=== PATIENT | male | born 1990 | race Caucasian/White ===

== ENCOUNTER 2022-06-18 10:43 | Emergency (ER) | payer OTHER, SELFPAY ==
[2022-06-18 11:21] VITALS: BP 138/86; PULSE 64; RESP 14; TEMP 36.7; O2SAT 100; BMI 33.3
--- NOTE | 2022-06-18 11:30 | ED_ITS ---
HPI - Wound/Laceration General: Chief Complaint: Wound/Laceration Stated Complaint: Right Hand Injury Time Seen by Provider: 06/18/22 11:29 Source: patient Mode of arrival: ambulatory Limitations: no limitations History of Present Illness: Patient is a nice 32-year-old male presents to ED today for evaluation of a laceration to his right hand that he sustained just prior to arrival after cutting it on a table saw. Last tetanus is unknown. Onset (ago): hour(s) Extremity Location: Right: hand Place: home Patient tetanus UTD: No Context: accidental Associated symptoms: Reports inability to move (cannot extend finger) Review of Systems Musc: Reports: extremity pain (R hand); Denies: extremity swelling Skin/Breast: Reports: other (laceration R hand) Neuro: Denies: numbness in extremities or sensory changes Physical Exam Const: COMMON NORMALS: no acute distress, no limitations, healthy appearing, alert and well nourished Extremity: COMMON NORMALS: capillary refill normal GENERAL: Yes normal exam except as noted RIGHT UPPER EXTREMITY: Yes hand & digits OTHER: small 1.25cm laceration directly overlying volar R 4th MCP joint; finger is resting in slight flexion and there does appear to be a lacerated extensor tendon; no bleeding; sensation normal; normal perfusion distally Neuro: COMMON NORMALS: no sensory deficits noted SENSORIUM/ORIENTATION: Yes alert Procedures Laceration Laceration 1: Site: hand Side (If applicable): right Size (cm): 1.25 Description: linear and clean Depth: involves tendon Local Anesthetic: lidocaine 1% Amount of anesthesia used (mL): 1.0 Pre-repair: wound explored and irrigated extensively Skin layer closed with: nylon Size (cm): 5-0 Number of sutures: 3 Technique: simple, interrupted Course Vital Signs: Vital signs: Vital Signs Temperature 98.1 F 06/18/22 11:21 Pulse Rate 64 06/18/22 11:21 Respiratory Rate 14 06/18/22 11:21 Blood Pressure 138/86 06/18/22 11:21 Pulse Oximetry 100 06/18/22 11:21 Oxygen Delivery Me thod Room Air 06/18/22 11:21 MDM - Wound/Laceration Medical Decision Making Wound was copiously irrigated and repaired as documented. I could not locate both edges of the tendon for a [id number] stitch. Wound was closed and finger will be placed in splint in extension and he will follow-up with orthopedics for tendon repair. He will be placed on oral antibiotics. Tetanus was updated. Management referral placed. Return to ED precautions given. Lab Data Radiology Impressions Hand X-Ray 06/18/22 11:56 IMPRESSION: No acute findings. Discharge Plan Discharge Patient Disposition: Home Clinical Impression: Extensor tendon laceration of finger with open wound Qualifiers: Encounter type: initial encounter Qualified Code(s): S56.429A - Laceration of extensor muscle, fascia and tendon of unspecified finger at forearm level, initial encounter Condition: Stable Prescriptions: New cephalexin 500 mg capsule 500 mg PO Q6H 7 Days Qty: 28 0RF Discharge Orders: Discharge ED (Routine); Ordered 06/18/22 Ordered By: Chasity Shea Patient Instructions: Finger Laceration (ED), Tendon Laceration (ED) Activity Restrictions/Additional Instructions: As we discussed you need to wear your splint at all times. Case management should contact you shortly to set you up with your follow-up orthopedic appointment. Monitor wound for signs of infection such as redness, swelling, streaking up your arm, purulent drainage. Please seek medical reevaluation if these occur. 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
--- NOTE | 2022-06-18 11:56 | XRR_ITS ---
PROCEDURE INFORMATION: Exam: XR Right Hand Exam date and time: 06/18/2022 12:18 PM Age: 32 years old Clinical indication: Injury or trauma; Other: Laceration; Hand; Right; Additional info: 4th mcp laceration/trauma; Tendon injury TECHNIQUE: Imaging protocol: Radiologic exam of the right hand. Views: 3 or more views. COMPARISON: No relevant prior studies available. FINDINGS: Bones/joints: Negative for acute bony abnormality. Soft tissues: Unremarkable XR/XR hand RT min 3V* [id number] IMPRESSION: No acute findings.
[2022-06-18] MEDS: tetanus-dipt-pertussis 0.5 mL SDV IM (12:03)
--- NOTE | 2022-06-18 15:46 | DCPLANNER ---
Addendum entered by Anne Regan 06/26/22 15:14: Patient had a follow up appointment scheduled with ortho - patient did attend appointment. Addendum entered by Anne Regan 06/19/22 10:53: Patient has a follow up appointment scheduled for Monday, June 20, 2022 at 11:[address] Salinas at ortho. Original Note: manager in training had message to schedule a follow up appointment for patient with ortho. manager in training sent patients information to the front office staff at ortho. Patients information will be printed and reviewed. Clinic will call patient with appointment information.
--- NOTE | 2022-06-20 14:57 | DCPLANNER ---
claim manager called patient due to no primary care physician - patient declines at this time.
== END 2022-06-18 13:25 | disposition home or self-care (01) ==
PROVIDERS: Emergency Provider Physician Assistant
DX: S66.324A Laceration of extensor muscle, fascia and tendon of right ring finger at wrist and hand level, initial encounter (principal); W27.0XXA Contact with workbench tool, initial encounter; Z23 Encounter for immunization
CPT/HCPCS: 12001; 73130; 90471; 90715; 99283

== ENCOUNTER 2022-06-20 15:32 | Outpatient (CLI) | payer OTHER, SELFPAY | END 2022-06-20 15:33 | disposition home or self-care (01) | LOC: SPT 15:33 | PROVIDERS: Visit Provider Orthopaedic Surgery | DX: Z46.89 Encounter for fitting and adjustment of other specified devices (principal); S56.429D Laceration of extensor muscle, fascia and tendon of unspecified finger at forearm level, subsequent encounter; S61.209D Unspecified open wound of unspecified finger without damage to nail, subsequent encounter; X58.XXXD Exposure to other specified factors, subsequent encounter | CPT/HCPCS: 97760; L3807 ==

== ENCOUNTER 2022-06-28 05:53 | Day surgery (SDC) | payer OTHER, SELFPAY ==
[2022-06-27 09:42] VITALS: BMI 33.3
[2022-06-28] VITALS (10 sets, daily range): BP systolic 114–154; BP diastolic 73–93; PULSE 71–82; RESP 15–18; TEMP 36.8–37.2; O2SAT 96–100
--- NOTE | 2022-06-28 06:41 | P.ANESASSM_ITS ---
Pre-Anesthetic Assessment Height/Weight: Height 1.88 m Weight 117.934 kg Temp Pulse Resp BP Pulse Ox O2 Del Method 98.4 F 77 18 140/85 100 Room Air 06/28/22 06:15 06/28/22 06:15 06/28/22 06:15 06/28/22 06:15 06/28/22 06:15 06/28/22 06:15 Preop Diagnosis: Repair right ring finger extensor tendon Operation Date: 06/28/22 07:00 Proposed Procedures p wound exploration and extensor tendon repair right ring finger/ [id number],S56.429A; S61.209A(Right) - Ori Salinas MD s Tendon Repair Finger Extensor Tendon Repair Finger(Right) - Ori Salinas MD Familial anesthetic complications: None Was Beta Enoc taken within 24 hours: N/A Was Clonidine taken within 24 hours: N/A Last intake: Intake Last Liquid Date 06/27/22 Last Liquid Time 19:00 Last Solid Date 06/27/22 Last Solid Time 19:00 Social No alcohol and No tobacco Exam alert, oriented x 3, clear to auscultation bilaterally and regular rate & rhythm Airway Mallampati: Class III Dentition: chipped (front) History/ROS No significant complaints Anesthetic Plan ASA status: 1 Anesthesia: Choice Risk of > 500 ml blood loss (7ml/kg in children): No Medications/Allergies Home Medications Medication Instructions Recorded Confirmed Last Taken Type fast form ulnar gutter splint #1 ea 06/20/22 06/20/22 Unknown Rx Allergies Allergy/AdvReac Type Severity Reaction Status Date / Time No Known Allergies Allergy Verified 06/20/22 11:22 [facility] Anesthesia Social History (Updated 06/20/22 @ 11:26 by Anibal Irene LPN) Smoking and tobacco status: never smoked Alcohol intake: never Substance/Drug Use: never Data Anesthesia Cardiac Studies: No Data to Display
[2022-06-28] MEDS: sodium chloride 0.9% 1,000 ML 30 ML IV (06:44)
--- NOTE | 2022-06-28 07:06 | W.PM.OPSUD ---
Surgery/Procedure H&P Update DATE OF PROCEDURE: June 28, 2022 DATE H&P PERFORMED: 06/20/22 H&P UPDATE INFORMATION: I have reviewed H&P completed within last 30 days PREOP DIAGNOSIS: Repair right ring finger extensor tendon PLANNED PROCEDURE: Operation Date: 06/28/22 07:00 Proposed Procedures p wound exploration and extensor tendon repair right ring finger/ [id number],S56.429A; S61.209A(Right) - Ori Salinas MD s Tendon Repair Finger Extensor Tendon Repair Finger(Right) - Ori Salinas MD
[2022-06-28] MEDS: ceFAZolin 2,000 MG in sodium chloride 0.9% (plus) 50 ML 100 MG IV (07:13)
--- NOTE | 2022-06-28 08:20 | PM.OP ---
Operative Report Date of procedure: June 28, 2022 Pre-op diagnosis: Preop Diagnosis laceration right ring finger extensor tendon Post-op diagnosis: same Procedure done: Repair right ring finger extensor tendon Pathology: none sent Surgeon: Ori Salinas Anesthesia: General Estimated blood loss (mL): 2 Tourniquet time (min): 34 Complications: None Findings: The patient had a clean laceration of the extensor tendon to the ring finger as it inserted on the extensor day at the metacarpal phalangeal joint. No infection or foreign bodies were noted Condition: stable Disposition: PACU Brief History: The patient is a 32-year-old male who sustained a laceration to his right dorsal hand while sharpening a chainsaw with a loss of extension of the ring finger metacarpal phalangeal joint. He is taken to the operating room for exploration of wound and repair of the extensor tendon/put Procedure: Duane was taken to the operating room and was given a general anesthesia. He was given 2 g of Ancef. Stitches were removed. He was prepped and draped in the usual fashion. A timeout was performed. The transverse incision over the ring finger metacarpal was opened up and then extended in a Z like fashion moving distally from the radial aspect of the laceration and proximally from the ulnar. This allowed us to fully access to the extensor day and proximal tendon. With blunt dissection with a hemostat the laceration in the extensor tendon as it entered the day was identified. The free edges of the tendon were mobilized proximately 5 mm distally and proximally. A 2-0 Ethibond suture was run through both ends of the tendon in a locking Krak?w fashion with both sutures exiting the ends of each side of the tendon. These were secured approximating the ends of the tendon. 2-0 Vicryl was then used in a simple [id number] fashion dorsally repairing the the day radially and reinforcing the repair dorsally. Wounds were irrigated with saline. The skin was closed with interrupted 3-0 Prolene. Xeroflo gauze 4 x 4's web roll a 2 inch David were applied. The patient was placed back in his splint in extension.
[2022-06-28] MEDS: ondansetron 2 mg/ML SDV 2 mL 4 MG IVP (09:32)
--- NOTE | 2022-06-28 17:23 | ANE.PACU2 ---
Inpatient post-anesthesia follow up: Airway intact: Yes Vital signs: Temperature 98.7 F Pulse Rate 73 Respiratory Rate 18 Blood Pressure 114/90 Pulse Oximetry 97 Oxygen Delivery Me thod Room Air Oxygen Flow Rate Fraction of Inspir ed Oxygen Hydration adequate: Yes Nausea and vomiting: No Pain level: 1 Mental status: Baseline
== END 2022-06-28 09:39 | disposition home or self-care (01) ==
PROVIDERS: PCP Orthopaedic Surgery; Visit Provider Orthopaedic Surgery
PROC: (CPT 26418; principal; 2022-06-28 07:00)
PROC: (CPT 26418; 2022-06-28 07:00)
DX: S66.324A Laceration of extensor muscle, fascia and tendon of right ring finger at wrist and hand level, initial encounter (principal); W31.2XXA Contact with powered woodworking and forming machines, initial encounter
CPT/HCPCS: 26418; J0690; J1100; J2250; J2405; J2704; J3010; J3490; J7030